=== PATIENT | male | born 1995 | race Caucasian/White ===

== ENCOUNTER 2016-12-18 17:28 | Day surgery (SDC) | payer BC, MEDICAID ==
[2016-12-18] VITALS (10 sets, daily range): BP systolic 112–141; BP diastolic 39–79; PULSE 42–89; TEMP 98.7–99
[~2016-12-18] VITALS: Ht 185.4 cm; Wt 147.8 kg
[2016-12-18] MEDS ORDERED: NORCO 325 MG-51 TAB PO (18:13)
[2016-12-18 18:54] LABS: HEMATOCRIT 42.8 % (42.0-52.0); HEMOGLOBIN 14.5 g/dl (13.5-18.0); MEAN CELL VOLUME 87 fl (80.0-100.0); MEAN CORPUSCULAR HEMOGLOBIN 30 pg (27.0-31.0); MEAN CORPUSCULAR HGB CONC 34 g/dl (33.0-37.0); MEAN PLATELET VOLUME 10.5 fl (7.4-10.4); PLATELET COUNT 199 K/mm3 (130-400); RED BLOOD COUNT 4.91 M/mm3 (4.20-5.60); REDCELL DISTRIBUTION WIDTH-CV 13.8 % (11.5-14.5); WHITE BLOOD COUNT 16.4 K/mm3 (4.8-10.8)
[2016-12-18 19:06] LABS: CALCIUM 9.1 mg/dL (8.4-10.2); CREATININE, serum 1.68 mg/dL (0.66-1.25); POTASSIUM 3.9 mmol/L (3.4-5.0)
== END 2016-12-18 22:00 ==
LOC: SDCO 17:28 → JCC 17:33 → SDCO 21:45
PROVIDERS: Urology
DX: N20.1 Calculus of ureter (principal); K21.9 Gastro-esophageal reflux disease without esophagitis; M51.26 Other intervertebral disc displacement, lumbar region; Z80.9 Family history of malignant neoplasm, unspecified
CPT/HCPCS: OP; C1769; J0690; J1885; J1940; J2405; J2704; J2765; J3010; J7030